=== PATIENT | female | born 1990 | race Caucasian/White ===

== ENCOUNTER 2016-09-12 02:39 | Emergency (ER) | payer BC ==
[~2016-09-12] VITALS: Ht 157.5 cm; Wt 72.6 kg
[2016-09-12 03:00] VITALS: BP 145/87
[2016-09-12] MEDS ORDERED: DIPHTH,PERTUSS(ACELL),TET TOX 0.5 ML DISP.SYRIN. VAX IM ONE (03:30)
[2016-09-12] MEDS ORDERED: LIDOCAINE 1%/EPI 1:100,000 20 ML VIAL. INJ ONE (03:30)
[2016-09-12] MEDS ORDERED: CEPH-264 PO (04:06)
--- NOTE | 2016-09-12 04:06 | PHYS DOC ---
Past Medical History Past Medical History: Anxiety, Bipolar Past Surgical History: Tonsillectomy Additional Past Surgical Histo: WISDOM TEETH, EYE SX Alcohol Use: Occasionally Drug Use: None Adult General Chief Complaint Chief Complaint: LACERATION/AVULSION HPI HPI 25-year-old female who states she fell out of bed and landed on some broken glass on the floor lacerating her buttock in several areas prior to arrival. Bleeding is controlled at this time. Patient denies hitting her head or having any loss consciousness. She denies being on any blood thinning medications. Pt denies any rectal trauma or bleeding. Review of Systems Review of Systems Constitutional: Denies fever or chills [] Eyes: Denies change in visual acuity, redness, or eye pain [] HENT: Denies nasal congestion or sore throat [] Respiratory: Denies cough or shortness of breath [] Cardiovascular: No additional information not addressed in HPI [] GI: Denies abdominal pain, nausea, vomiting, bloody stools or diarrhea [] : Denies dysuria or hematuria [] Musculoskeletal: Denies back pain or joint pain [] Integument: Denies rash or skin lesions [] Neurologic: Denies headache, focal weakness or sensory changes [] Endocrine: Denies polyuria or polydipsia [] Current Medications Current Medications Current Medications Medications (Trade) Dose Ordered Sig/Mike Start Time Stop Time Status Last Admin Dose Admin Diphtheria/ Tetanus/Acell Pertussis (Boostrix) 0.5 ml ONCE ONCE 09/12/16 03:30 09/12/16 03:31 DC 09/12/16 04:06 0.5 ML Lidocaine/ Epinephrine (Xylocaine 1%-Epi 1:100,000) 20 ml 1X ONCE 09/12/16 03:30 09/12/16 03:31 DC 09/12/16 03:30 20 ML Allergies Allergies Allergies Coded Allergies Type Severity Reaction Last Updated Verified lithium Allergy Unknown 09/12/16 Yes Physical Exam Physical Exam Constitutional: Well developed, well nourished, no acute distress, non-toxic appearance. [] HENT: Normocephalic, atraumatic, bilateral external ears normal, oropharynx moist, no oral exudates, nose normal. [] Eyes: PERRLA, EOMI, conjunctiva normal, no discharge. [] Neck: Normal range of motion, no tenderness, supple, no stridor. [] Cardiovascular:Heart rate regular rhythm, no murmur [] Lungs & Thorax: Bilateral breath sounds clear to auscultation [] Abdomen: Bowel sounds normal, soft, no tenderness, no masses, no pulsatile masses. [] Skin: Warm, dry, no erythema, no rash, two lacerations to the buttock, one is near the gluteal cleft approximately 3 cm, the other laceration is lateral to the gluteal cleft on the left approximately 2.5 cm in size, there is no rectal involvement, there is no sphincter involvement. [] Back: No tenderness, no CVA tenderness. [] Extremities: No tenderness, no cyanosis, no clubbing, ROM intact, no edema. [] Neurologic: Alert and oriented X 3, normal motor function, normal sensory function, no focal deficits noted. [] Psychologic: Affect normal, judgement normal, mood normal. [] Current Patient Data Vital Signs Vital Signs Date Time Temp Pulse Resp B/P (MAP) Pulse Ox O2 Delivery O2 Flow Rate FiO2 09/12/16 03:00 98.2 90 16 145/87 (106) 99 Room Air 98.2 EKG EKG [] Radiology/Procedures Radiology/Procedures [] Course & Med Decision Making Course & Med Decision Making Pertinent Labs and Imaging studies reviewed. (See chart for details) She had both lacerations repaired without incident. Patient was given a prescription for Keflex to cover for any chance of infection. I counseled her to have her sutures removed in 7-10 days and have the wound fully evaluated at that time. I counseled her to return if she developed any redness or swelling or notices any purulent drainage from the wound site. There is no evidence of any rectal involvement at this injury. Return precautions were provided and acknowledged by the patient. Dragon Disclaimer Dragon Disclaimer This electronic medical record was generated, in whole or in part, using a voice recognition dictation system. Laceration Repair Lac Repair Indication: Buttock lacerations Procedure: The patient was placed in the appropriate position and anesthesia around the buttock lacerations. Two lacerations were repaired. Both lacerations were cleansed with betadine and fully irrigated with normal saline. One laceration was closed with 8 4-0 nylon sutures with excellent approximation. The wound area was then dressed with gauze. The second laceration was closed with 7 4-0 nylon sutures with excellent approximation. Total repaired wound length: 3 cm and 2.5 cm respectively. Other Items:None The patient tolerated the procedure well. Complications: None. Departure Departure Impression: Primary Impression: Laceration of buttock Disposition: 01 HOME, SELF-CARE Admitting Physician: Other Condition: STABLE Referrals: WALLY MANZO (PCP) Patient Instructions: Laceration Care, Adult, [id number] Additional Instructions: Please take your antibiotic as prescribed and have your sutures removed in 7-10 days. Return to the ER if you notice any worsening of your pain or if you develop any redness or drainage from the wound. Scripts Cephalexin (KEFLEX) 500 Mg Capsule 1 CAP PO TID, #30 CAP Prov: KARYN SIMEON DO 09/12/16 KARYN SIMEON DO Sep 12, 2016 04:06
== END 2016-09-12 04:13 | disposition home or self-care (01) ==
LOC: ER 02:39
DX: S31.801A Laceration without foreign body of unspecified buttock, initial encounter (principal); W06.XXXA Fall from bed, initial encounter; Y93.89 Activity, other specified; Y92.89 Other specified places as the place of occurrence of the external cause; Y99.8 Other external cause status
CPT/HCPCS: 12002; 90471; 90715; 99283; J3490

== ENCOUNTER 2017-09-09 12:47 | Emergency (ER) | payer BC ==
[2017-09-09] MEDS: methylPREDNISolone SOD SUCC PF 125 MG/2 ML VIAL. IV (13:31)
[2017-09-09 13:36] LABS: URINE HCG POC HCG NEGATIVE (Negative)
[2017-09-09] MEDS: IPRATRPIUM/ALBUTEROL 0.5/2.5MG 3 ML NEBU. NEB (14:01)
[2017-09-09 14:02] LABS: ADD MAN DIFF? NO
[2017-09-09 14:14] LABS: ANION GAP 13 (6-14); BLOOD UREA NITROGEN 8 mg/dL (7-20); CALCIUM 9.6 mg/dL (8.5-10.1); CARBON DIOXIDE 24 mmol/L (21-32); CHLORIDE 104 mmol/L (98-107); CREATININE 0.8 mg/dL (0.6-1.0); GLUCOSE 106 mg/dL (70-99); POTASSIUM 4.1 mmol/L (3.5-5.1); SODIUM 141 mmol/L (136-145)
[2017-09-09 14:17] LABS: BASO # 0.1 x10^3/uL (0.0-0.2); BASO % 1 % (0-3); EOS # 0.2 x10^3/uL (0.0-0.7); EOS % 3 % (0-3); HEMATOCRIT 43.5 % (36.0-47.0); HEMOGLOBIN 15.1 g/dL (12.0-15.5); LYMPH % 26 % (24-48); MEAN CORPUSCULAR HEMOGLOBIN 32 pg (25-35); MEAN CORPUSCULAR HGB CONC 35 g/dL (31-37); MEAN CORPUSCULAR VOLUME 92 fL (79-100); MONO # 0.5 x10^3/uL (0.0-1.1); MONO % 7 % (0-9); NEUT % 63 % (31-73); PLATELET COUNT 287 x10^3/uL (140-400); RED BLOOD COUNT 4.75 x10^6/uL (3.50-5.40); RED CELL DISTRIBUTION WIDTH 12.5 % (11.5-14.5); WHITE BLOOD COUNT 7.8 x10^3/uL (4.0-11.0)
[2017-09-09 14:17] LABS: ETHANOL < 10 mg/dL (0-10)
[2017-09-09 14:20] LABS: BILIRUBIN,URINE NEGATIVE (NEG); CLARITY,URINE CLEAR; COLOR,URINE YELLOW; GLUCOSE,URINE NEGATIVE (NEG); NITRITE,URINE NEGATIVE (NEG); PH,URINE 8.5; PROTEIN,URINE 30 mg/dL (NEG-TRACE); UROBILINOGEN,URINE 0.2 mg/dL (0.2 mg/dL)
[2017-09-09 14:22] LABS: TROPONINI < 0.017 ng/mL (0.000-0.055)
[2017-09-09 14:27] LABS: AMPHETAMINE/METHAMPHETAMINE NEG (NEG); BARBITURATES NEG (NEG); BENZODIAZEPINES NEG (NEG); CANNABINOIDS POS (NEG); COCAINE NEG (NEG); ETHANOL, URINE NEG (NEG); METHADONE NEG (NEG); OPIATES NEG (NEG); PHENCYCLIDINE NEG (NEG)
[2017-09-09 14:29] LABS: THYROID STIM HORMONE (TSH) 1.134 uIU/mL (0.358-3.74)
[2017-09-09 14:31] LABS: CKMB INDEX 0.3 % (0-4); CKMB MASS 0.5 ng/mL (0.0-3.6); CREATINE KINASE 153 U/L (26-192)
[2017-09-09 14:37] LABS: D-DIMER 0.27 ug/mlFEU (0.00-0.50)
[2017-09-09 14:44] LABS: BACTERIA,URINE FEW /HPF (0-FEW); RBC,URINE 0 /HPF (0-2); SQUAMOUS EPITHELIAL CELL,UR OCC /LPF
== END 2017-09-09 15:23 | disposition home or self-care (01) ==
LOC: ER 12:47
DX: R06.02 Shortness of breath (principal); Z88.8 Allergy status to other drugs, medicaments and biological substances
CPT/HCPCS: 36415; 71046; 80048; 80307; 81001; 81025; 82553; 84443; 84484; 85025; 85379; 93005; 94640; 96374; 99285-25; G0480; J2930; J7620

== ENCOUNTER 2020-04-05 23:34 | Emergency (ER) | payer BC ==
[~2020-04-05] VITALS: Ht 157.5 cm; Wt 81.8 kg
[~2020-04-05 23:34] MED LIST: CEPH-264 PO; VENTOLIN HFA18 GM INH
[2020-04-06] VITALS: BP 144/99
[2020-04-06] MEDS ORDERED: IBUP-1007 PO (00:26)
[2020-04-06] MEDS ORDERED: DIAZ5TAB PO (00:26)
--- NOTE | 2020-04-06 00:27 | PHYS DOC ---
Past Medical History Past Medical History: Anxiety, Bipolar Past Surgical History: Tonsillectomy Additional Past Surgical Histo: WISDOM TEETH, EYE SX Smoking Status: Current Some Day Smoker Alcohol Use: Occasionally Drug Use: None General Adult EDM: Chief Complaint: SHOUDLER HPI: HPI: Patient is a 29 year old female who arrives with a chief complaint of bilateral trapezius pain. Patient had neck pain that radiates to both shoulders for the last 2 days that is progressively worse. Pain is worse with range of motion and not really improved with Tylenol. Patient described as an achy pain. Patient denies any focal weakness or numbness or other neurological deficits. Patient had a mild cough and was recently tested for COVID-19 which was negative. Patient had similar episodes in the past which are better with a chiropractor but was unable to get into 1. Review of Systems: Review of Systems: Constitutional: Denies fever or chills. [] Eyes: Denies change in visual acuity. [] HENT: Denies nasal congestion or sore throat. [] Respiratory: Denies cough or shortness of breath. [] Cardiovascular: Denies chest pain or edema. [] GI: Denies abdominal pain, nausea, vomiting, bloody stools or diarrhea. [] : Denies dysuria. [] Musculoskeletal: Complains of upper back and neck pain Integument: Denies rash. [] Neurologic: Complains of headache but no focal weakness or sensory changes. [] Endocrine: Denies polyuria or polydipsia. [] Lymphatic: Denies swollen glands. [] Psychiatric: Denies depression or anxiety. [] Heart Score: Risk Factors: Risk Factors: DM, Current or recent (<one month) smoker, HTN, HLP, family history of CAD, obesity. Risk Scores: Score 0 - 3: 2.5% MACE over next 6 weeks - Discharge Home Score 4 - 6: 20.3% MACE over next 6 weeks - Admit for Clinical Observation Score 7 - 10: 72.7% MACE over next 6 weeks - Early Invasive Strategies Current Medications: Current Medications Medications (Trade) Dose Ordered Sig/Mike Start Time Stop Time Status Last Admin Dose Admin Diazepam (Valium) 10 mg 1X ONCE 04/06/20 00:30 04/06/20 00:31 UNV Ketorolac Tromethamine (Toradol 30mg Vial) 30 mg 1X ONCE 04/06/20 00:30 04/06/20 00:31 UNV Allergies: Allergies: Allergies Coded Allergies Type Severity Reaction Last Updated Verified lithium Allergy Unknown 09/12/16 Yes Physical Exam: PE: Constitutional: Well developed, well nourished, no acute distress, non-toxic appearance. [] Anxious HENT: Normocephalic, atraumatic, bilateral external ears normal, no trismus nose normal. [] Eyes: PERRLA, EOMI, conjunctiva normal, no discharge. [] Neck: Tender to palpate along the bilateral trapezius muscles, supple, no stridor. [] Cardiovascular:Heart rate regular rhythm, no murmur [] peripheral pulse intact cap refill is brisk Lungs & Thorax: Bilateral breath sounds clear, no respiratory distress Abdomen:, soft, no tenderness, no masses, no pulsatile masses. [] Skin: Warm, dry, no erythema, no rash. [] Multiple scars to bilateral upper extremities Back: No tenderness, no CVA tenderness. [] Extremities: No tenderness, no cyanosis, no clubbing, ROM intact, no edema. [] Neurologic: Alert and oriented X 3, normal motor function, normal sensory function, no focal deficits noted. [] Psychologic: Anxious EKG: EKG: [] Radiology/Procedures: Radiology/Procedures: [] Course & Med Decision Making: Course & Med Decision Making Pertinent Labs and Imaging studies reviewed. (See chart for details) [] 29-year-old female presents with an exacerbation of her trapezius pain. Patient is neurologically intact. Patient has no evidence of epidural abscess. Patient is clinically stable. Patient will treat anti-inflammatories and muscle relaxants. Dragon Disclaimer: Dragon Disclaimer: This electronic medical record was generated, in whole or in part, using a voice recognition dictation system. Departure Departure Impression: Primary Impression: Strain of cervical portion of both trapezius muscles Disposition: 01 DC HOME SELF CARE/HOMELESS Condition: STABLE Referrals: NO PCP (PCP) KULWANT GARCIA MD 2-3 DAYS Patient Instructions: Cervical Sprain Additional Instructions: EMERGENCY DEPARTMENT GENERAL DISCHARGE INSTRUCTIONS THANK YOU for coming to [facility] Emergency Department (ED) today and trusting us with your care. We trust that you had a positive experience in our Emergency Department. If you wish to speak to the department Management you can contact the supervisor finishing department at . YOUR FOLLOW UP INSTRUCTIONS ARE FOLLOWS: Do you have a private doctor? If you do not have a private doctor, please ask for a resource list of physicians or clinics that may be able to assist you with follow up care. The Emergency Physician has interpreted your x-rays. The X-ray specialist will also review them. If there is a change in the findings you will be notified in 48 hours when at all possible. A lab test or lab culture may have been done, your results will be reviewed and you will be notified if you need a change in treatment. ADDITIONAL INSTRUCTIONS AND INFORMATION Your care today has been supervised by a physician who is specially trained in emergency care. Many problems require more than one evaluation for a complete diagnosis and treatment. We recommend that you schedule your follow up appointment as recommended to ensure complete treatment of your illness or injury. If you are unable to obtain follow up care and continue to have a problem, or if your condition worsens we recommend that you return to the ED. We are not able to safely determine your condition over the phone nor are we able to give sound medical advice over the phone. For these safety reasons, if you call for medical advice we will ask you to come to the ED for further evaluation If you have any questions regarding these discharge instructions please call the ED at . SAFETY INFORMATION In the interest of safety, wellness, and injury prevention; we encourage you to wear your seatbelt, if you smoke; quit smoking, and we encourage your family to use protective helmet for bicycling and other sporting events that present an increased risk for head injury. IF YOUR SYMPTOMS WORSEN OR NEW SYMPTOMS DEVELOP, OR YOU HAVE CONCERNS ABOUT YOUR CONDITION; OR IF YOUR CONDITION WORSENS WHILE YOU ARE WAITING FOR YOUR FOLLOW UP APPOINTMENT; EITHER CONTACT YOUR PRIMARY CARE DOCTOR, THE PHYSICIAN WHOSE NAME AND NUMBER YOU WERE GIVEN, OR RETURN TO THE ED IMMEDIATELY. Scripts Ibuprofen (IBUPROFEN) 600 Mg Tablet 600 MG PO PRN Q6HRS PRN for PAIN, #20 TAB take with food or milk Prov: KARYN ELIZALDE MD 04/06/20 Diazepam (VALIUM) 5 Mg Tablet 5 MG PO TID for SPASMS, #12 TAB Prov: KARYN ELIZALDE MD 04/06/20 KARYN ELIZALDE MD Apr 06, 2020 00:27
[2020-04-06] MEDS ORDERED: KETOROLAC 30 MG/ML VIAL. ONE (00:30)
[2020-04-06] MEDS ORDERED: diazePAM 5 MG TABLET ONE (00:30)
[2020-04-06] MEDS: KETOROLAC 30 MG/ML VIAL. IM ONE (00:34)
[2020-04-06] MEDS: diazePAM 5 MG TABLET PO ONE (00:34)
== END 2020-04-06 00:38 | disposition home or self-care (01) ==
LOC: ER 23:34
DX: S16.1XXA Strain of muscle, fascia and tendon at neck level, initial encounter (principal); M25.512 Pain in left shoulder; M25.511 Pain in right shoulder; M54.2 Cervicalgia; F41.9 Anxiety disorder, unspecified; F31.9 Bipolar disorder, unspecified; Z90.89 Acquired absence of other organs; Z98.890 Other specified postprocedural states; Z87.891 Personal history of nicotine dependence; Z88.8 Allergy status to other drugs, medicaments and biological substances; X58.XXXA Exposure to other specified factors, initial encounter; Y93.89 Activity, other specified; Y92.89 Other specified places as the place of occurrence of the external cause; Y99.8 Other external cause status
CPT/HCPCS: 96372; 99283; J1885